=== PATIENT | male | born 1990 | race Caucasian/White ===

== ENCOUNTER 2025-08-24 13:38 | Emergency (ER) | payer BC ==
[~2025-08-24] VITALS: Ht 175.3 cm; Wt 66.7 kg
[2025-08-24 13:52] VITALS: BP 140/89; PULSE 59; RESP 18; TEMP 97.6; O2SAT 100
--- NOTE | 2025-08-24 14:58 | Physician Documentation ---
History of Present Illness ~ Chief Complaint: Allergic Reaction Stated Complaint: EYE SWELLING Time Seen by MD: 14:28 OK to notify your PCP?: Yes Source: patient Mode of Arrival: POV Exam Limitations: no limitations HPI 35-year-old male presents with bilateral eyelid swelling. He reports that this occurred when he was working on a specific tree on Tuesday when he had puppy eyes. He started taking Benadryl and Sudafed and his symptoms mainly resolved. Yesterday he went back to work on cutting this specific tree and once again his eyes swelled up. He has no vision change, no airway obstruction. Last dose of Benadryl 1 hour ago Medication Reconciliation Allergies: Coded Allergies: No Known Allergies (Unverified , 08/24/25) Review of Systems All Other Systems at this time: Reviewed and Negative Physical Exam Vital Signs: RN Vital Signs have been reviewed: Yes, Temperature: 97.6, Source: Oral, Heart Rate: 59, Respiratory Rate: 18, BP: 140/89, Pulse Oximetry: 100, Weight: 66.700 Oxygen Flow Rate: 0 Pulse Oximetry Reflects: adequate oxygenation Physical Exam General: Alert, no apparent distress. HEENT: PERRL, EOMI, slight injection, moist mucous membranes. Bilateral eyelid upper and lower edema. Neck: Full range of motion. No cervical lymphadenopathy. Respiratory: Lungs clear, no respiratory distress. Chest: No accessory muscle use. Cardiovascular: Regular rate and rhythm, no murmurs. Extremities: Normal range of motion, no deformity. Neurologic: Oriented x4. Psychiatric: Normal mood and affect. Skin: Normal color, warm and dry. No rash, no ecchymosis. Progress Results/Orders Results/Orders Vital Signs 08/24/25 13:52 Temp 97.6 Pulse 59 Resp 18 B/P (MAP) 140/89 Pulse Ox 100 O2 Flow Rate 0 Medical Decision Making Additional information obtaine: old records Findings He is presenting with upper and lower eyelid edema after working on a tree which he is apparently allergic to. He had these symptoms on Tuesday which then improved throughout the week and yesterday worked on the same tree and symptoms returned. He has been taking Benadryl and Sudafed. We discussed the indications for Benadryl and Sudafed. He has been taking the Benadryl every 4 hours as directed on the back of the bottle and last dose was 1 hour ago. We discussed that he should probably be taking a medication such as Zyrtec or Claritin as it is non drowsy and good for 24 hours to help with his allergy symptoms. I will do a IM injection of Kenalog 40 mg to help with the eyelid swelling. There was no airway involvement. Differential Dx:Considerations: Include: Anaphylaxis, Angioedema, Bronchospasm, Drug reaction, Hypotension, Urticaria Departure Disposition: 01 HOME / SELF CARE / HOMELESS Impression: Primary Impression: Acute allergic reaction Condition: Stable Additional Instructions: Please start taking Claritin or Zyrtec once daily to help with her allergy symptoms. You can also do sinus rinses or use Flonase to help decrease your symptoms. Please avoid working on this type of tree as you are apparently allergic to it. Return back here for any new or worsening symptoms. Follow up with the primary care provider within the next week. Referrals: NO PRIMARY CARE PROVIDER (PCP) Education Educated: Patient Educated regarding: diagnosis, treatment, prognosis, need for follow up Additional Comment Medical Screen Exam This patient recieved a medical screening examination. After reviewing the indiv idual's medical complaints with presenting symptoms and performing an appropriate physical examination, it was determined that no immediate life- threatening emergency medical condition is present. This individual is also not a women having contractions. Signature Scribe Signature: . Attestation: Scribed for Yamel Ragsdalep by Yamel Whitaker NP . 08/24/25 14:57 Parts of this note were created using [email or web address] voice recognition software program. While efforts were made to correct any mistakes made by this voice recognition software program, nonsensical phrases may remain in this note. In addition, there may be errors and syntax, grammar, content and spelling. YAMEL RAGSDALE Aug 24, 2025 14:58
[2025-08-24] MEDS: triamcinolone acetonide 40mg/ml inj IM ONE (15:20)
== END 2025-08-24 15:27 | disposition home or self-care (01) ==
LOC: ER 13:40
DX: T78.40XA Allergy, unspecified, initial encounter (principal); H02.843 Edema of right eye, unspecified eyelid; H02.846 Edema of left eye, unspecified eyelid; X58.XXXA Exposure to other specified factors, initial encounter
CPT/HCPCS: 96372; 99283; J3301